=== PATIENT | male | born 1955 | race Caucasian/White ===

== ENCOUNTER 2017-06-14 16:03 | Inpatient (IN) | payer BC ==
[~2017-06-14] VITALS: Ht 175.3 cm; Wt 75.2 kg
[~2017-06-14 16:03] MED LIST: ANTIVERT25 MG PO; ASPIR 8181 M1 PO; KLONOPIN1 MG PO; MED FOR CHOLESTEROL PO; PLAVIX75 MG PO
[2017-06-14 17:03] LABS: HEMATOCRIT 46.2 % (38.0-50.0); HEMOGLOBIN 16.5 G/DL (12.5-16.6); MCH 31.7 PG (29.0-34.0); MCHC 35.7 G/DL (30.0-36.0); MCV 88.7 FL (86-99); PLATELET COUNT 213 K/uL (156-360); RBC DIS.WIDTH-CV 12.2 % (11.8-14.6); RBC DIS.WIDTH-SD 40.1 % (39-53); RED BLOOD COUNT 5.21 M/uL (4.00-5.50); WHITE BLOOD COUNT 5.3 K/uL (4.1-10.2)
[2017-06-14 17:07] LABS: CHLORIDE 106 mEq/L (99-109); SODIUM 140 mEq/L (136-147)
[2017-06-14 17:08] LABS: GLUCOSE 94 mg/dL (70-99)
[2017-06-14 17:12] LABS: CREATININE 0.9 mg/dL (0.6-1.3); GFR ESTIMATE (CALCULATED) > 59 mL/min/ (58.99-99999)
[2017-06-14 17:13] LABS: UREA NITROGEN (BUN) 14 mg/dL (9-23)
[2017-06-14 17:21] LABS: TROP-I INTERPRETATION NEGATIVE; TROPONIN-I < 0.01 ng/mL (0.0-0.30)
[2017-06-14] MEDS ORDERED: BYSTOLIC5 MG PO (17:39)
[2017-06-14] MEDS ORDERED: ATORVASTATIN CA40 MG PO (17:39)
[2017-06-14] MEDS ORDERED: SIMVASTATIN80 MG PO (17:39)
[2017-06-14] MEDS ORDERED: PANTOPRAZOLE SO40 MG PO (17:40)
[2017-06-14 19:11] LABS: D-DIMER ELISA < 150.00 ng/mLDDU (<230)
[2017-06-14 19:38] LABS: ALBUMIN 4.1 g/dL (3.2-4.8)
[2017-06-14 19:39] LABS: MAGNESIUM 1.9 mg/dL (1.3-2.7)
[2017-06-14 19:41] LABS: TOTAL PROTEIN 7.1 g/dL (6.4-8.3)
[2017-06-14 19:44] LABS: ALKALINE PHOSPHATASE 87 IU/L (3-129); PHOSPHORUS 3.1 mg/dL (2.5-4.9)
[2017-06-14 19:46] LABS: AST (GOT) 21 IU/L (2-34); DIRECT BILIRUBIN 0.4 mg/dL (0.0-0.3)
[2017-06-14 19:47] LABS: ALT (GPT) 12 IU/L (3-49)
[2017-06-14 20:17] LABS: PTT 33.7 SEC (25-37)
[2017-06-14 20:21] LABS: HDL CHOLESTEROL 24 MG/DL (Desirable>=40); LDL CHOLESTEROL 56 mg/dL (Desirable<100); NON-HDL CHOLESTEROL 78 mg/dL (Desirable<160); TOTAL CHOLESTEROL 102 mg/dL (Desirable<200); TRIGLYCERIDES 109 MG/DL (Normal: <150)
[2017-06-14 20:51] VITALS: BP 139/69
[2017-06-15 00:30] VITALS: BP 125/69
[2017-06-15 03:46] LABS: INTER. NORMALIZED RATIO 1.1
[2017-06-15 04:00] VITALS: BP 115/65
[2017-06-15 04:02] LABS: TROP-I INTERPRETATION NEGATIVE; TROPONIN-I < 0.01 ng/mL (0.0-0.30)
[2017-06-15 08:00] VITALS: BP 128/75
[2017-06-15 09:50] LABS: HEMATOCRIT 45.5 % (38.0-50.0); HEMOGLOBIN 15.8 G/DL (12.5-16.6); MCH 31.2 PG (29.0-34.0); MCHC 34.7 G/DL (30.0-36.0); MCV 89.9 FL (86-99); PLATELET COUNT 192 K/uL (156-360); RBC DIS.WIDTH-CV 12.6 % (11.8-14.6); RBC DIS.WIDTH-SD 41.4 % (39-53); RED BLOOD COUNT 5.06 M/uL (4.00-5.50)
[2017-06-15 10:14] LABS: TROP-I INTERPRETATION NEGATIVE; TROPONIN-I < 0.01 ng/mL (0.0-0.30)
[2017-06-15 10:30] LABS: CHLORIDE 105 MEQ/L (99-109); GFR ESTIMATE (CALCULATED) > 59 mL/min/ (58.99-99999); GLUCOSE 133 mg/dL (70-99); POTASSIUM 4.2 MEQ/L (3.7-5.4); SODIUM 138 MEQ/L (136-147); UREA NITROGEN (BUN) 13 mg/dL (9-23)
[2017-06-15 11:58] VITALS: BP 132/79
[2017-06-15 15:31] VITALS: BP 158/78
[2017-06-15 16:18] LABS: PTT 67.9 SEC (25-37)
[2017-06-15 19:20] VITALS: BP 147/75
[2017-06-16 00:20] VITALS: BP 128/72
[2017-06-16 01:23] LABS: TROP-I INTERPRETATION NEGATIVE; TROPONIN-I 0.01 ng/mL (0.0-0.30)
[2017-06-16 04:45] VITALS: BP 135/72
[2017-06-16 05:29] LABS: BASOPHIL (%) 0.9 % (0-1); EOSINOPHIL COUNT 0.2 K/uL (0-0.3); HEMATOCRIT 44.2 % (38.0-50.0); HEMOGLOBIN 14.8 G/DL (12.5-16.6); LYMPHOCYTE (%) 40.4 % (15-42); LYMPHOCYTE COUNT 1.8 K/uL (1.0-2.8); MCH 30.3 PG (29.0-34.0); MCHC 33.5 G/DL (30.0-36.0); MCV 90.4 FL (86-99); MONOCYTE (%) 9.8 % (3-12); MONOCYTE COUNT 0.4 K/uL (0-0.8); NEUTROPHIL (%) 43.9 % (45-76); NEUTROPHIL COUNT 1.9 K/uL (1.8-6.4); PLATELET COUNT 197 K/uL (156-360); RBC DIS.WIDTH-CV 12.4 % (11.8-14.6); RED BLOOD COUNT 4.89 M/uL (4.00-5.50); WHITE BLOOD COUNT 4.4 K/uL (4.1-10.2)
[2017-06-16 05:31] LABS: TROP-I INTERPRETATION NEGATIVE; TROPONIN-I < 0.01 ng/mL (0.0-0.30)
[2017-06-16 05:39] LABS: PTT 69.6 SEC (25-37)
[2017-06-16 06:02] LABS: CREATININE 1.1 MG/DL (0.6-1.3); GFR ESTIMATE (CALCULATED) > 59 mL/min/ (58.99-99999); GLUCOSE 107 mg/dL (70-99); UREA NITROGEN (BUN) 12 mg/dL (9-23)
[2017-06-16 07:32] LABS: CHLORIDE 104 MEQ/L (99-109); POTASSIUM 4.2 MEQ/L (3.7-5.4); SODIUM 140 MEQ/L (136-147)
[2017-06-16 07:46] VITALS: BP 151/67
[2017-06-16 17:53] VITALS: BP 139/80
[2017-06-16 19:50] VITALS: BP 137/76
[2017-06-16 19:54] LABS: BASOPHIL (%) 0.7 % (0-1); EOSINOPHIL (%) 1.7 % (0-5); EOSINOPHIL COUNT 0.1 K/uL (0-0.3); HEMATOCRIT 44.7 % (38.0-50.0); HEMOGLOBIN 15.5 G/DL (12.5-16.6); IMMATURE GRANULOCYTE (%) 0.2 % (0.0-0.7); LYMPHOCYTE (%) 27.9 % (15-42); LYMPHOCYTE COUNT 1.2 K/uL (1.0-2.8); MCH 31.1 PG (29.0-34.0); MCHC 34.7 G/DL (30.0-36.0); MCV 89.8 FL (86-99); MONOCYTE (%) 12.6 % (3-12); MONOCYTE COUNT 0.5 K/uL (0-0.8); NEUTROPHIL (%) 56.9 % (45-76); NEUTROPHIL COUNT 2.3 K/uL (1.8-6.4); PLATELET COUNT 205 K/uL (156-360); RBC DIS.WIDTH-CV 12.5 % (11.8-14.6); RBC DIS.WIDTH-SD 41.1 % (39-53); RED BLOOD COUNT 4.98 M/uL (4.00-5.50); WHITE BLOOD COUNT 4.1 K/uL (4.1-10.2)
[2017-06-17 00:20] VITALS: BP 126/66
[2017-06-17 04:30] VITALS: BP 128/75
[2017-06-17 05:39] LABS: BASOPHIL (%) 0.5 % (0-1); EOSINOPHIL COUNT 0.2 K/uL (0-0.3); HEMATOCRIT 41.5 % (38.0-50.0); IMMATURE GRANULOCYTE (%) 0.2 % (0.0-0.7); LYMPHOCYTE (%) 32.2 % (15-42); LYMPHOCYTE COUNT 1.4 K/uL (1.0-2.8); MCH 30.6 PG (29.0-34.0); MCHC 33.7 G/DL (30.0-36.0); MCV 90.6 FL (86-99); MONOCYTE (%) 10.7 % (3-12); MONOCYTE COUNT 0.5 K/uL (0-0.8); NEUTROPHIL (%) 52.4 % (45-76); NEUTROPHIL COUNT 2.2 K/uL (1.8-6.4); PLATELET COUNT 190 K/uL (156-360); RBC DIS.WIDTH-CV 12.4 % (11.8-14.6); RBC DIS.WIDTH-SD 41.4 % (39-53); RED BLOOD COUNT 4.58 M/uL (4.00-5.50); WHITE BLOOD COUNT 4.2 K/uL (4.1-10.2)
[2017-06-17 06:09] LABS: CHLORIDE 109 MEQ/L (99-109); GFR ESTIMATE (CALCULATED) > 59 mL/min/ (58.99-99999); GLUCOSE 108 mg/dL (70-99); POTASSIUM 3.8 MEQ/L (3.7-5.4); SODIUM 139 MEQ/L (136-147); UREA NITROGEN (BUN) 11 mg/dL (9-23)
[2017-06-17 07:15] VITALS: BP 139/76
[2017-06-17 11:48] VITALS: BP 153/80
[2017-06-17] MEDS ORDERED: LISINOPRIL2.5 MG PO (11:56)
[2017-06-17] MEDS ORDERED: CLOPIDOGREL75 MG PO (11:56)
[2017-06-17] MEDS ORDERED: ASPIRIN EC325 MG PO (11:56)
[2017-06-17] MEDS ORDERED: FAMOTIDINE20 MG PO (11:56)
== END 2017-06-17 13:06 | disposition home or self-care (01) | DRG 247 ==
LOC: EME 16:03 → EDOF 18:21 → ENRESERV 18:29 → EDOF 18:44 → 4EAST 18:44 → EDOF 18:44 → ENRESERV 18:44 → 4EAST 19:36
PROVIDERS: Hospitalist; Internal Medicine; Internal Medicine Cardiovascular Disease
DX: I25.110 Atherosclerotic heart disease of native coronary artery with unstable angina pectoris (principal); T82.855A Stenosis of coronary artery stent, initial encounter; Y83.1 Surgical operation with implant of artificial internal device as the cause of abnormal reaction of the patient, or of later complication, without mention of misadventure at the time of the procedure; I10 Essential (primary) hypertension; E78.5 Hyperlipidemia, unspecified; I25.2 Old myocardial infarction; Z79.82 Long term (current) use of aspirin; Z82.49 Family history of ischemic heart disease and other diseases of the circulatory system; Z87.891 Personal history of nicotine dependence
CPT/HCPCS: 71046; 80048; 80061; 80076; 83735; 84100; 84484; 85025; 85025 91; 85027; 85347; 85379; 85610; 85730; 93005; 94799; 99281; 99285; C1725; C1769; C1874; C1887; J1200; J1644; J2250; J3010; J3246; J7030